=== PATIENT | female | born 1950 | race Caucasian/White ===

== ENCOUNTER 2016-08-13 04:39 | Day surgery (SDC) | payer BC ==
[~2016-08-13 04:39] MED LIST: 8 HOUR650 MG PO; ALTA2.5 PO; C2 PO; CENESTIN0.625 MG OR; COREG25 PO; COUMADIN3 MG PO; ESTRADIOL2 MG PO; FOLIC PO; JANTOVEN2 MG PO; KLOR-CON M2020 MEQ PO; L20 PO; L40 PO; LOVENOX40 SC; LOVENOX60 SC; MULTIPLE VIT PO; NEXIUM40 PO; PROTONIX PO; TREXALL15 MG PO
[2016-08-13 06:04] LABS: INTERNATIONAL NORMAL RATI 1.2 UNITS (-); PROTIME (NOT ORD) 15.5 SEC (12.0-14.5)
[2016-12-31] MEDS ORDERED: PRAVAC PO (11:35)
== END 2016-08-13 08:14 | disposition home or self-care (01) ==
LOC: SDC 04:39
PROVIDERS: Orthopaedic Surgery
PROC: 3E0S3BZ Introduction of Anesthetic Agent into Epidural Space, Percutaneous Approach (ICD-10-PCS; 2016-08-13)
PROC: 3E0S33Z Introduction of Anti-inflammatory into Epidural Space, Percutaneous Approach (ICD-10-PCS; principal; 2016-08-13 07:30)
DX: M54.16 Radiculopathy, lumbar region (principal); G43.909 Migraine, unspecified, not intractable, without status migrainosus; E78.00 Pure hypercholesterolemia, unspecified; I25.2 Old myocardial infarction; M06.9 Rheumatoid arthritis, unspecified; K21.9 Gastro-esophageal reflux disease without esophagitis; Z88.8 Allergy status to other drugs, medicaments and biological substances; Z79.899 Other long term (current) drug therapy; Z79.01 Long term (current) use of anticoagulants; Z86.73 Personal history of transient ischemic attack (TIA), and cerebral infarction without residual deficits; Z90.89 Acquired absence of other organs; Z98.890 Other specified postprocedural states; Z90.49 Acquired absence of other specified parts of digestive tract; Z90.710 Acquired absence of both cervix and uterus
CPT/HCPCS: 85610; J2250; J3010; Q9967